=== PATIENT | female | born 1965 | race Caucasian/White ===

== ENCOUNTER 2017-02-26 11:16 | Outpatient (CLI) | payer OTHER ==
--- NOTE | 2017-02-26 13:46 | Diagnostic Imaging Report ---
HECTOR KWAN [facility] [address] [facility] [address] [address] Report Submission Date: Feb 26, 2017 12:06:27 PM CDT Patient Study Name: EMMA GILLIAM Date: Feb 26, 2017 11:27:38 AM CDT Modality Type: US Gender: F Description: UNILAT LTD STDY EXT VEINS : 61 Institution: [facility] Physician: HECTOR KWAN Examination: Ultrasound vein History: Leg discomfort Findings: Sonographic evaluation of the lower extremity venous system from the groin to the popliteal fossa inclusive bilaterally. Normal compressibility. No luminal filling defect. Normal waveforms and response to augmentation. No popliteal region fluid collection. Impression: No evidence for deep venous thrombosis. Electronically signed on Feb 26, 2017 12:06:27 PM CDT by: Shan HILLS
== END 2017-02-26 11:17 ==
LOC: RAD 11:16
PROVIDERS: ATTEND Family Medicine
DX: R60.0 Localized edema (principal)
CPT/HCPCS: 93970

== ENCOUNTER 2018-01-20 08:01 | Outpatient (CLI) | payer OTHER ==
[2018-01-20 08:31] LABS: EOSINOPHILS % 3.2 % (0.0-6.8); MEAN CORPUSCULAR HEMOGLOBIN 27.2 pg (28.0-34.0); MEAN CORPUSCULAR VOLUME 86.9 fl (80.0-100.0); MONOCYTES % 4.4 % (0.0-11.0); NEUTROPHILS # 3.9 # k/uL (1.4-7.7)
[2018-01-20 08:46] LABS: eGFR (African) > 60; eGFR (Non-African) > 60
[2018-01-20 08:50] LABS: APPEARANCE,URINE CLEAR (CLEAR); COLOR,URINE YELLOW (YELLOW); OCCULT BLOOD,URINE NEGATIVE (NEGATIVE); PH URINE 5.5 (5.0 - 8.0); UROBILINOGEN URINE 0.2 Eu (0.2-1.0)
== END 2018-01-20 08:02 ==
LOC: LAB 08:01
PROVIDERS: ATTEND Nurse Practitioner Family
DX: I10 Essential (primary) hypertension (principal); E11.8 Type 2 diabetes mellitus with unspecified complications; E03.9 Hypothyroidism, unspecified; R53.1 Weakness; D64.9 Anemia, unspecified; Z79.899 Other long term (current) drug therapy
CPT/HCPCS: 36415; 80053; 80061; 81002; 82043; 82607; 82728; 82746; 83036; 83540; 84439; 84443; 85025; 85651; 86140

== ENCOUNTER 2018-01-24 21:35 | Emergency (ER) | payer OTHER ==
--- NOTE | 2018-01-24 22:13 | ED Physician Documentation ---
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 Pt fell from a picnic table that topled when too many people got up at once. She stuck the back of her head on another table. Pt has had headache all day, 8/10 severity, and has had blurry vision and nausea. Pt has some neck soreness. Pt had a strange feeling "rushing" in her L ear.) - ROS CONST: no problems EYES/ENT: problems with vision GI/: nausea NEURO/PSYCH: headache - PAST HX Past History: other (anxiety, DM, thyroid d/o.) Surgeries/Procedures: other (ortho surgery) Allergies/Adverse Reactions: Allergies Allergy/AdvReac Type Severity Reaction Status Date / Time No Known Allergies Allergy Verified 01/24/18 21:48 Home Medications: Ambulatory Orders Medication Instructions Recorded Citalopram Hydrobromide [Celexa] 40 mg PO DAILY u2 12/11/14 Levothyroxine Sodium [Synthroid] 150 mcg PO DAILY u2 12/11/14 Metformin HCl [Glucophage] 250 mg PO BID 01/24/18 - SOCIAL HX Smoking History: non-smoker - FAMILY HX Family History: No - VITAL SIGNS Vital Signs: Vital Signs Temp Pulse Resp BP Pulse Ox 97.5 F L 67 16 146/71 98 01/24/18 21:40 01/24/18 21:40 01/24/18 21:40 01/24/18 21:40 01/24/18 21:40 - REVIEWED ASSESSMENTS Nursing Assessment Reviewed: Yes Vitals Reviewed: Yes Progress - Progress Progress: CT head: no acute process. Toradol 30 mg IM Zofran 4 mg po improved. ED Results Lab/Radiology - Orders Orders: ED Orders Category Date Time Status CT BRAIN W/O CONTRAST Stat Exams 01/24/18 Ordered General Adult Physical Exam - PHYSICAL EXAM GENERAL APPEARANCE: moderate distress EENT: eye inspection normal, pharynx normal NECK: normal inspection, supple, other (no central tenderness) RESPIRATORY: no resp distress, chest non-tender CVS: reg rate & rhythm BACK: normal inspection, no CVA tenderness SKIN: warm/dry, normal color EXTREMITIES: non-tender, normal range of motion, no evidence of injury NEURO: oriented X3, CN's nml as tested, motor nml, sensation nml Discharge Clincal Impression: Head trauma Qualifiers: Encounter type: initial encounter Qualified Code(s): S09.90XA - Unspecified injury of head, initial encounter Referrals: Leigh Ann Jones FNP [Primary Care Provider] - Condition: Stable Disposition: 01 HOME, SELF-CARE Decision to Admit: NO Decision Time: 11:00
[2018-01-24] MEDS ORDERED: KETOROLAC TROMETHAMINE 30 MG/1ML VIAL IM ONE (22:39)
[2018-01-24] MEDS ORDERED: ONDANSETRON HCL 4 MG TAB.RAPDIS PO ONE (22:41)
[2018-01-24 23:00] VITALS: BP 134/87
--- NOTE | 2018-01-25 06:46 | Diagnostic Imaging Report ---
NGUYEN CALIXTO [facility] [place] [facility] [address] [facility] [address] [place], [place]. [address] Report Submission Date: Jan 24, 2018 10:35:40 PM CDT Patient Study Name: EMMA GILLIAM Date: Jan 24, 2018 10:13:54 PM CDT Modality Type: CT\SR Gender: F Description: CT BRAIN W/O CONTRAST : 61 Institution: [facility] [place] [facility] Physician: NGUYEN CALIXTO CT brain noncontrast CLINICAL HISTORY: PT WAS SITTING ON A PICNIC TABLE THAT FLIPPED BACK AND HIT THE BACK OF HER HEAD ON A DIFFERENT PICNIC TABLE (Hx) / ITS.REASON head trauma TECHNIQUE: 5 mm contiguous axial images of the brain, noncontrast. FINDINGS: There is no evidence of intracranial mass effect, hemorrhage, or acute hydrocephalus. The lateral ventricles are symmetrical and the 4th ventricle is midline without shift. No acute brain parenchymal changes or extra-axial fluid collections are identified. The posterior fossa contents are within normal limits. The calvarium is intact. The visualized sinuses and mastoid air cells are clear. IMPRESSION: No acute intracranial process. Electronically signed on Jan 24, 2018 10:35:40 PM CDT by: Luis HILLS
== END 2018-01-24 23:09 | disposition home or self-care (01) ==
LOC: ED 21:35
DX: S09.90XA Unspecified injury of head, initial encounter (principal); W19.XXXA Unspecified fall, initial encounter; Y92.9 Unspecified place or not applicable; Y93.9 Activity, unspecified; Y99.9 Unspecified external cause status
CPT/HCPCS: 70450; A9270; J1885; 96372

== ENCOUNTER 2018-02-23 14:09 | Outpatient (CLI) | payer OTHER | END 2018-02-23 14:10 | LOC: NEPHRO 14:09 | PROVIDERS: ATTEND Internal Medicine Nephrology | DX: E11.9 Type 2 diabetes mellitus without complications (principal); I10 Essential (primary) hypertension; N18.9 Chronic kidney disease, unspecified | CPT/HCPCS: 99213 ==

== ENCOUNTER 2018-03-09 09:36 | Outpatient (CLI) | payer OTHER ==
--- NOTE | 2018-03-09 16:34 | Diagnostic Imaging Report ---
JAZZY VASQUEZ [facility] [address] [facility] [address] [address] Report Submission Date: Mar 09, 2018 10:55:03 AM CDT Patient Study Name: EMMA GILLIAM Date: Mar 09, 2018 9:55:00 AM CDT Modality Type: US Gender: F Description: US RENAL : 61 Institution: [facility] Physician: JAZZY VASQUEZ Renal ultrasound Clinical history hypertension Technique ultrasound and color Doppler was performed of the kidneys and bladder Findings: The bladder is normal measuring 6.7 x 7 cm. The kidneys abnormal echogenicity. Right kidney measures 11.7 x 5.3 x 6 cm. Left kidney measures 12.6 x 5.9 x 4.8 cm. The left cortical thickness 2 cm. The right cortical thickness is 1.3 cm Impression: No acute renal pathology Electronically signed on Mar 09, 2018 10:55:03 AM CDT by: Melo HILLS
== END 2018-03-09 09:38 ==
LOC: RAD 09:36
PROVIDERS: ATTEND Internal Medicine Nephrology
DX: E11.9 Type 2 diabetes mellitus without complications (principal); I10 Essential (primary) hypertension; N18.9 Chronic kidney disease, unspecified
CPT/HCPCS: 76770

== ENCOUNTER 2018-03-16 10:38 | Outpatient (CLI) | payer OTHER | END 2018-03-16 10:40 | LOC: CARD 10:38 | PROVIDERS: ATTEND Internal Medicine Nephrology | DX: I10 Essential (primary) hypertension (principal) ==

== ENCOUNTER 2018-04-20 14:10 | Outpatient (CLI) | payer OTHER | END 2018-04-20 14:11 | LOC: NEPHRO 14:10 | PROVIDERS: ATTEND Internal Medicine Nephrology | DX: E11.9 Type 2 diabetes mellitus without complications (principal); I10 Essential (primary) hypertension | CPT/HCPCS: 99213 ==

== ENCOUNTER 2018-08-10 10:04 | Outpatient (CLI) | payer OTHER | END 2018-08-10 10:06 | LOC: NEPHRO 10:04 | PROVIDERS: ATTEND Internal Medicine Nephrology | DX: I12.9 Hypertensive chronic kidney disease with stage 1 through stage 4 chronic kidney disease, or unspecified chronic kidney disease (principal); N18.3 Chronic kidney disease, stage 3 (moderate); E11.21 Type 2 diabetes mellitus with diabetic nephropathy | CPT/HCPCS: 99213 ==

== ENCOUNTER 2018-08-13 08:26 | Outpatient (CLI) | payer OTHER ==
[2018-08-13 12:29] LABS: MEAN CORPUSCULAR HEMOGLOBIN 26.8 pg (28.0-34.0)
[2018-08-13 12:30] LABS: BASOPHILS % 0.9 (0.0-1.5); EOSINOPHILS % 2.8 % (0.0-6.8); MONOCYTES % 5.9 % (0.0-11.0); NEUTROPHILS # 4.8 # k/uL (1.4-7.7)
[2018-08-13 12:43] LABS: eGFR (Non-African) > 60
[2018-08-13 14:16] LABS: APPEARANCE,URINE CLEAR (CLEAR); COLOR,URINE YELLOW (YELLOW); OCCULT BLOOD,URINE NEGATIVE (NEGATIVE); PH URINE 5.5 (5.0 - 8.0); UROBILINOGEN URINE 0.2 Eu (0.2-1.0)
== END 2018-08-13 08:35 ==
LOC: LAB 08:26
PROVIDERS: ATTEND Internal Medicine Nephrology
DX: E11.9 Type 2 diabetes mellitus without complications (principal); I10 Essential (primary) hypertension
CPT/HCPCS: 36415; 80053; 81002; 83036; 85025

== ENCOUNTER 2019-02-08 15:31 | Outpatient (CLI) | payer OTHER | END 2019-02-08 16:00 | LOC: NEPHRO 15:31 | PROVIDERS: ATTEND Internal Medicine Nephrology | DX: I12.9 Hypertensive chronic kidney disease with stage 1 through stage 4 chronic kidney disease, or unspecified chronic kidney disease (principal); N18.3 Chronic kidney disease, stage 3 (moderate); E11.21 Type 2 diabetes mellitus with diabetic nephropathy; E87.5 Hyperkalemia; Z79.84 Long term (current) use of oral hypoglycemic drugs | CPT/HCPCS: 99214 ==

== ENCOUNTER 2019-05-30 11:37 | Outpatient (CLI) | payer OTHER ==
[2019-05-30 12:42] LABS: A1C 5.9 % (<5.7)
[2019-05-30 13:18] LABS: eGFR (Non-African) > 60
[2019-05-30 13:19] LABS: HDL 99 mg/dL (>40)
== END 2019-05-30 11:42 ==
LOC: LAB 11:37
PROVIDERS: ATTEND Nurse Practitioner Family
DX: E78.00 Pure hypercholesterolemia, unspecified (principal); E11.65 Type 2 diabetes mellitus with hyperglycemia; R00.2 Palpitations; R53.82 Chronic fatigue, unspecified
CPT/HCPCS: 36415; 80053; 80061; 83036; 84439; 84443; 84481; 93005